=== PATIENT | female | born 1935 | race Caucasian/White ===

== ENCOUNTER 2017-06-09 17:09 | Emergency (ER) | payer MEDICARE, MEDICAID ==
[~2017-06-09] VITALS: Ht 162.6 cm; Wt 54.0 kg
[2017-06-09] MEDS ORDERED: FLUPH2.5I IM (17:35)
[2017-06-09] MEDS ORDERED: LORA0.5T2 PO (19:42)
[2017-06-09 19:49] VITALS: BP 195/76
== END 2017-06-09 21:05 | disposition home or self-care (01) ==
LOC: EMS 17:10
DX: F31.9 Bipolar disorder, unspecified (principal); F41.9 Anxiety disorder, unspecified; J44.9 Chronic obstructive pulmonary disease, unspecified; I10 Essential (primary) hypertension; F17.200 Nicotine dependence, unspecified, uncomplicated; Z86.73 Personal history of transient ischemic attack (TIA), and cerebral infarction without residual deficits; Z88.0 Allergy status to penicillin; Z88.5 Allergy status to narcotic agent
CPT/HCPCS: 82962; 99285